=== PATIENT | female | born 1945 | race Two or more races ===

== ENCOUNTER 2020-11-20 12:18 | Emergency (ER) | payer MEDICARE, BC ==
[~2020-11-20] VITALS: Ht 172.7 cm; Wt 77.1 kg
[~2020-11-20 12:18] MED LIST: ATEN100T PO; BISA-79 PO; BUPR-52 PO; CLON1TAB12 PO; SENN1TAB33 PO
[2020-11-20 12:31] VITALS: BP 175/106
[2020-11-20] MEDS ORDERED: VALACYCLOVIR HCL 500 MG TABLET ONE (12:58)
[2020-11-20] MEDS ORDERED: HYDROCODONE/APAP 5/325MG TABLET ONE (13:01)
[2020-11-20] MEDS: VALACYCLOVIR HCL 500 MG TABLET PO ONE (13:03)
[2020-11-20] MEDS: HYDROCODONE/APAP 5/325MG TABLET PO ONE (13:14)
[2020-11-20] MEDS ORDERED: predniSONE 20 MG TABLET ONE (13:15)
[2020-11-20] MEDS: predniSONE 20 MG TABLET PO ONE (13:16)
[2020-11-20] MEDS ORDERED: VALA10002 PO (14:10)
--- NOTE | 2020-11-20 14:10 | NUR ---
Patient discharged to home in stable condition. Written and verbal after care instructions given. Patient verbalizes understanding of instruction.
--- NOTE | 2020-11-20 14:15 | NUR ---
PT LEFT BEFORE PROVIDED THE [facility] PRESCRIPTION.
== END 2020-11-20 14:17 | disposition home or self-care (01) ==
LOC: ER 12:37
DX: B02.21 Postherpetic geniculate ganglionitis (principal); I10 Essential (primary) hypertension; Z88.0 Allergy status to penicillin; Z60.2 Problems related to living alone; Z79.899 Other long term (current) drug therapy
CPT/HCPCS: 99284; J7512